=== PATIENT | male | born 1995 | race Caucasian/White ===

== ENCOUNTER 2016-07-28 08:51 | Emergency (ER) | payer OTHER ==
[2016-07-28] MEDS ORDERED: MOTRIN 600 MG PO ONE (09:10)
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
[2016-07-28] MEDS ORDERED: MOTRIN 600 MG ONE (09:22)
[2016-07-28 09:53] VITALS: BP 133/77; PULSE 86; O2SAT 98
--- NOTE | 2016-07-28 10:07 | XRAY ---
Indication: Pain following twisting injury. Comparison: None 3 views of the right knee demonstrates small nonspecific suprapatellar effusion. No other bony, articular, or soft tissue abnormalities.
== END 2016-07-28 09:50 | disposition home or self-care (01) ==
LOC: ED 08:51
DX: S83.91XA Sprain of unspecified site of right knee, initial encounter (principal); X50.0XXA Overexertion from strenuous movement or load, initial encounter; Y93.39 Activity, other involving climbing, rappelling and jumping off; Y92.63 Factory as the place of occurrence of the external cause; Y99.0 Civilian activity done for income or pay
CPT/HCPCS: 73562; 99283